=== PATIENT | female | born 1980 | race Two or more races ===

== ENCOUNTER 2025-01-22 16:11 | Inpatient (IN) | payer OTHER ==
[~2025-01-22] VITALS: Ht 154.9 cm; Wt 59.0 kg
--- NOTE | 2025-01-22 16:24 | NUR ---
PACIENTE FEMENINA ALERTA Y ORIENTADA X3, REFIERE DOLOR ABDOMINAL SANJU Y HOSEA Y VOMITOS.
--- NOTE | 2025-01-22 17:04 | NUR ---
SE EJECURAN ORDENES MEDICAS EN BAEZA TOTALIDAD.
[2025-01-22 17:09] LABS: HEMATOCRIT 34.4 % (36.0-45.00); HEMOGLOBIN 11.5 g/dL (12.0-15.00); MEAN CELL VOLUME 100.5 fL (80.00-100.00); MEAN CORPUSCULAR HEMOGLOBIN 33.6 pg (27.00-32.0); MEAN CORPUSCULAR HGB CONC 33.5 g/dl (32.0-36.0); PLATELET COUNT 191 K/uL (150-450); RED BLOOD COUNT 3.42 M/uL (4.00-6.00); RED CELL DISTRIBUTION WIDTH 17.8 % (11.5-14.5)
[2025-01-22 18:17] LABS: ALBUMIN 2.9 gm/dL (3.4-5.0); ALKALINE PHOSPHATASE 214 U/L (50-136); ALT/SGPT 176 U/L (12-78); BILIRUBIN TOTAL 0.99 mg/dL (0.3-1.2); BLOOD UREA NITROGEN 2 mg/dL (7-18); BUN CREA RATIO 3 (7.0-25.0); CALCIUM 8.4 mg/dL (8.5-10.1); CARBON DIOXIDE 30 mEq/L (21-32); CHLORIDE 98 mmol/L (98-107); CREATININE SERUM 0.78 mg/dL (0.55-1.02); GFR 80.61; GLOBULINA 4.4 G/DL (2.4-3.5); GLUCOSE FASTING 100 mg/dL (65-100); OSMOLALITY SERUM 270 MOSM/KG (275-295); SODIUM 137 mmol/L (136-145); TOTAL PROTEIN 7.3 gm/dL (6.4-8.2)
[2025-01-22 18:30] LABS: ANION GAP 11 (10.0-20.0); AST/SGOT 1514 U/L (15-37); HCG QUANTITATIVE < 1 mUI/mL (1-3)
[2025-01-22 18:31] LABS: POTASSIUM 2.35 mEq/L (3.5-5.1)
[2025-01-22] MEDS ORDERED: POTASSIUM BICARBONATE/CIT AC 25 MEQ TABLET.EFF PO ONE (18:45)
[2025-01-22 18:57] LABS: INR 1.47; PARTIAL THROMBOPLASTIN TIME 27.9 SECONDS (22.0-34.0)
[2025-01-22 19:33] LABS: PROTHROMBIN TIME 15.6 SECONDS (9.0-11.5)
[2025-01-22 19:46] LABS: URINE APPEARANCE Turbid; URINE BILIRRUBIN Large (NEGATIVE); URINE BLOOD Large; URINE COLOR Orange; URINE GLUCOSE Negative (NEGATIVE); URINE KETONE 15 (NEGATIVE); URINE LEUKOCYTE Moderate; URINE NITRATE Positive
[2025-01-22 19:50] LABS: URINE EPITHELIAL CELLS 43.8 uL (0.0-38.8); URINE RBC 83.9 uL (0.0-20.8)
[2025-01-22 20:15] LABS: URINE BACTERIA > 9821.5 uL (0.0-1933); URINE CAST > 21.83 uL (0.0-1.40); URINE PROTEIN 100 (NEGATIVE)
[2025-01-22 20:20] LABS: URINE MUCUS HEAVY; URINE YEAST NEGATIVE /hpf
[2025-01-22] MEDS ORDERED: PIPERACILLIN/TAZOBACTAM SODIUM 3.375 GM VIAL IV ONE ×2 (21:15→21:31)
[2025-01-22 22:17] LABS: ALBUMIN 2.3 gm/dL (3.4-5.0); BILIRUBIN TOTAL 0.78 mg/dL (0.3-1.2); CALCIUM 7.2 mg/dL (8.5-10.1); CREATININE SERUM 0.51 mg/dL (0.55-1.02); GFR 131.62; GLOBULINA 3.3 G/DL (2.4-3.5); TOTAL PROTEIN 5.6 gm/dL (6.4-8.2)
[2025-01-22 22:27] LABS: POTASSIUM 2.74 mEq/L (3.5-5.1)
[2025-01-22] MEDS ORDERED: RINGERS SOLUTION,LACTATED 1,000 ML IV SCH (23:15)
[2025-01-22] MEDS ORDERED: ONDANSETRON HCL 4 MG in 0.9 % SODIUM CHLORIDE 50 ML IV PRN (23:15)
[2025-01-22] MEDS ORDERED: MORPHINE SULFATE 4 MG/ML CARTRIDGE IV PRN (23:15)
[2025-01-23] MEDS ORDERED: PIPERACILLIN/TAZOBACTAM SODIUM 3.375 GM in DEXTROSE 5 % IN WATER 100 ML IV SCH
[2025-01-23 00:58] LABS: ALBUMIN 3.1 gm/dL (3.4-5.0); BILIRUBIN TOTAL 1.21 mg/dL (0.3-1.2); BILIRUBIN,CONJUGATED 0.84 mg/dL (0.0-0.2); BILIRUBIN,UNCONJUGATED 0.37 mg/dL (0.0-0.6); TOTAL PROTEIN 7.3 gm/dL (6.4-8.2)
[2025-01-23] MEDS ORDERED: POTASSIUM CHLORIDE IN WATER 100 ML IV SCH ×2 (01:00→17:00)
[2025-01-23 01:07] LABS: INR 1.4; PARTIAL THROMBOPLASTIN TIME 27.4 SECONDS (22.0-34.0); PROTHROMBIN TIME 14.9 SECONDS (9.0-11.5)
[2025-01-23 01:12] LABS: C-REACTIVE PROTEIN 3.81 MG/DL (0.00-0.29)
[2025-01-23 01:50] VITALS: BP 111/61
[2025-01-23 02:45] VITALS: BP 108/78; O2SAT 99
[2025-01-23 08:31] VITALS: BP 91/63; O2SAT 99
[2025-01-23] MEDS ORDERED: FAMOTIDINE/PF 20 MG in 0.9 % SODIUM CHLORIDE 8 ML IV PUSH SCH (09:00)
[2025-01-23] MEDS ORDERED: ENOXAPARIN SODIUM 40 MG/0.4 ML SYRINGE SUBCUTANEO SCH (09:00)
[2025-01-23] MEDS ORDERED: MORPHINE SULFATE 4 MG/ML CARTRIDGE IV PRN (09:24)
[2025-01-23 16:58] VITALS: BP 113/81
[2025-01-24 00:47] VITALS: BP 124/85; O2SAT 99
[2025-01-24 07:53] LABS: ALBUMIN 2.3 gm/dL (3.4-5.0); BILIRUBIN TOTAL 0.84 mg/dL (0.3-1.2); CALCIUM 8.1 mg/dL (8.5-10.1); CREATININE SERUM 0.37 mg/dL (0.55-1.02); GFR 190.61; GLOBULINA 3.4 G/DL (2.4-3.5); POTASSIUM 3.05 mEq/L (3.5-5.1); TOTAL PROTEIN 5.7 gm/dL (6.4-8.2)
[2025-01-24 08:00] VITALS: BP 108/73
[2025-01-24] MEDS ORDERED: DEXTROSE 5 % AND 0.9 % NACL 1,000 ML IV SCH (08:45)
[2025-01-24] MEDS ORDERED: CEFTRIAXONE SODIUM 2,000 MG VIAL IV SCH (12:00)
[2025-01-24 16:39] VITALS: BP 102/70; O2SAT 97
[2025-01-25 01:03] VITALS: BP 120/84; O2SAT 100
[2025-01-25 09:29] LABS: CALCIUM 8.4 mg/dL (8.5-10.1); CREATININE SERUM 0.33 mg/dL (0.55-1.02); GFR 217.51
[2025-01-25 09:39] LABS: POTASSIUM 2.82 mEq/L (3.5-5.1)
[2025-01-25] MEDS ORDERED: MORPHINE SULFATE 4 MG/ML CARTRIDGE IV PRN (09:45)
[2025-01-25] MEDS ORDERED: POTASSIUM CHLORIDE IN WATER 100 ML IV NR ×2 (10:00→15:00)
[2025-01-25 10:13] VITALS: BP 106/74; O2SAT 99
[2025-01-25 18:00] VITALS: BP 104/74; O2SAT 100
[2025-01-26 01:10] VITALS: BP 101/73; O2SAT 100
[2025-01-26 08:00] VITALS: BP 105/71; O2SAT 98
[2025-01-26 08:50] LABS: ANION GAP 6 (10.0-20.0); CALCIUM 8.4 mg/dL (8.5-10.1); CARBON DIOXIDE 34 mEq/L (21-32); CHLORIDE 105 mmol/L (98-107); CREATININE SERUM 0.38 mg/dL (0.55-1.02); GFR 184.83; GLUCOSE FASTING 85 mg/dL (65-100); SODIUM 142 mmol/L (136-145)
[2025-01-26 09:07] LABS: BUN CREA RATIO 3 (7.0-25.0); OSMOLALITY SERUM 278 MOSM/KG (275-295); POTASSIUM 2.98 mEq/L (3.5-5.1)
[2025-01-26 09:36] LABS: BLOOD UREA NITROGEN < 1 mg/dL (7-18)
[2025-01-26] MEDS ORDERED: POTASSIUM BICARBONATE/CIT AC 25 MEQ TABLET.EFF PO NR (10:00)
[2025-01-26] MEDS ORDERED: SPIRONOLACTONE 25 MG TABLET PO NR (10:00)
[2025-01-26 16:00] VITALS: BP 106/59; O2SAT 97
== END 2025-01-26 18:39 | disposition home or self-care (01) | DRG 439 ==
LOC: ER 16:13 → SURH 23:17 → SEC-K 23:17 → SURH 01-23 00:22
PROVIDERS: General Practice; Internal Medicine; ADMIT Student in an Organized Health Care Education/Training Program; ATTEND Student in an Organized Health Care Education/Training Program
PROC: BT43ZZZ Ultrasonography of Bilateral Kidneys (ICD-10-PCS; principal; 2025-01-22)
PROC: BW21YZZ Computerized Tomography (CT Scan) of Abdomen and Pelvis using Other Contrast (ICD-10-PCS; 2025-01-22)
DX: K85.90 Acute pancreatitis without necrosis or infection, unspecified (principal); N39.0 Urinary tract infection, site not specified; E87.6 Hypokalemia; R74.01 Elevation of levels of liver transaminase levels; K76.0 Fatty (change of) liver, not elsewhere classified

== ENCOUNTER 2025-07-01 14:14 | Emergency (ER) | payer OTHER ==
[~2025-07-01] VITALS: Ht 154.9 cm; Wt 61.2 kg
[2025-07-01] MEDS ORDERED: LEVALBUTEROL HCL 0.63 MG/3 ML SOLUTION IH ONE ×2 (16:07→16:15)
[2025-07-01 17:46] LABS: ALT/SGPT 37.0 U/L (12-78); AST/SGOT 102.0 U/L (15-37); BILIRUBIN TOTAL 0.28 mg/dL (0.3-1.2); BUN CREA RATIO 12.0 (7.0-25.0); CREATININE SERUM 0.73 mg/dL (0.55-1.02); GFR 87.01; GLOBULINA 4.3 G/DL (2.4-3.5); GLUCOSE FASTING 178.0 mg/dL (65-100); OSMOLALITY SERUM 288.0 MOSM/KG (275-295)
== END 2025-07-01 22:16 | disposition home or self-care (01) ==
LOC: ER 14:14 → EDBD 14:14 → ER 15:38
PROVIDERS: General Practice
DX: R06.02 Shortness of breath (principal); F41.9 Anxiety disorder, unspecified

== ENCOUNTER → 2025-07-31 | Emergency (ER) | payer OTHER ==
[~2025-07-31] VITALS: Ht 167.6 cm; Wt 72.6 kg
[~2025-07-31] MED LIST: CEFTRIAXONE SODIUM 1,000 MG VIAL IV ONE; CEFTRIAXONE SODIUM 1,000 MG VIAL ONE; IPRATROPIUM BROMIDE 0.5 MG/2.5 ML AMPUL.NEB IH ONE; IPRATROPIUM BROMIDE 0.5 MG/2.5 ML AMPUL.NEB IH SCH; KETOROLAC TROMETHAMINE 30 MG VIAL IV ONE; KETOROLAC TROMETHAMINE 30 MG VIAL ONE; LEVALBUTEROL HCL 1.25 MG/3 ML SOLUTION IH ONE; LEVALBUTEROL HCL 1.25 MG/3 ML SOLUTION IH SCH; METHYLPREDNISOLONE SOD SUCC 125 MG VIAL IV ONE; METHYLPREDNISOLONE SOD SUCC 125 MG VIAL ONE
== END | disposition left against medical advice (07) ==
LOC: ER 19:44
DX: R06.02 Shortness of breath (principal); F41.9 Anxiety disorder, unspecified